=== PATIENT | male | born 1980 | race Caucasian/White ===

== ENCOUNTER 2017-07-29 07:09 | Emergency (ER) | payer MEDICAID ==
--- NOTE | 2017-07-29 07:35 | EDM.PDOC ---
ED HPI GENERAL MEDICAL PROBLEM - General Chief Complaint: Skin Complaint Stated Complaint: reaction ITCHEY Time Seen by Provider: 07/29/17 07:27 Source of Information: Reports: Patient, RN Notes Reviewed History Limitations: Reports: No Limitations - History of Present Illness INITIAL COMMENTS - FREE TEXT/NARRATIVE: 37-year-old gentleman presents emergency department today with a rash encompassing part his chest back upper and lower extremities he's not sure of what he was exposed to did use some Dove body wash approximately one hour prior to presentation denies any shortness of breath or fevers - Related Data Allergies Allergy/AdvReac Type Severity Reaction Status Date / Time No Known Allergies Allergy Verified 09/21/14 12:55 Past Medical History Musculoskeletal History: Reports: Back Pain, Chronic, Fracture Other Musculoskeletal History: left arm and leg 2011. dislocated Left hip 2011 Psychiatric History: Reports: Addiction (Methamphetamine) - Infectious Disease History Infectious Disease History: Reports: Chicken Pox Social & Family History - Tobacco Use Smoking Status *Q: Current Every Day Smoker Years of Tobacco use: 20 Packs/Tins Daily: 1 - Caffeine Use Caffeine Use: Reports: Coffee - Alcohol Use Days Per Week of Alcohol Use: 0 - Recreational Drug Use Recreational Drug Use: Yes Recreational Drug Type: Reports: Methamphetamine Recreational Drug Use Frequency: Socially ED ROS GENERAL - Review of Systems Review Of Systems: See Below Constitutional: Reports: Other (Itching) Respiratory: Reports: No Symptoms Cardiovascular: Reports: No Symptoms Skin: Reports: Pruritis, Rash ED EXAM, SKIN/RASH Exam: See Below Exam Limited By: No Limitations General Appearance: Alert, WD/WN, No Apparent Distress Respiratory/Chest: No Respiratory Distress, Lungs Clear, Normal Breath Sounds, No Accessory Muscle Use Cardiovascular: Regular Rate, Rhythm, No Murmur Skin: Warm, Dry, Rash, Other (Excoriations consists with itch scratch cycle) Course - Vital Signs Last Recorded V/S: Last Vital Signs Temp 97.4 F 07/29/17 07:20 Pulse 95 07/29/17 07:20 Resp 16 07/29/17 07:20 BP 139/91 H 07/29/17 07:20 Pulse Ox 95 07/29/17 07:20 Departure - Departure Time of Disposition: 07:34 Disposition: Home, Self-Care 01 Condition: Good Clinical Impression: Contact dermatitis Qualifiers: Contact dermatitis type: allergic Contact dermatitis trigger: drugs in contact with skin Qualified Code(s): L23.3 - Allergic contact dermatitis due to drugs in contact with skin - Discharge Information Referrals: PCP,None [Primary Care Provider] - Additional Instructions: use Benadryl as needed to control itching symptoms, start the prednisone today please follow-up with your primary care provider in the next 3-5 days if you have no improvement, call return emergency department with worsening of symptoms - Assessment/Plan Plan: Assessment Acuity = acute Site and laterality = allergic reaction Etiology = possible contact exposure Manifestations = itching, rash Location of injury = Home Lab values = none Plan Treatment with Benadryl and short course of prednisone 20 mg once a day for 5 days follow-up with primary care 3-5 days if no improvement Patient was in agreement with the plan all questions were answered, they were instructed to return to the emergency department or call for worsening symptoms. This note was dictated using [employer] voice recognition software please call with any questions.
[2017-07-29 07:42] VITALS: BP 139/91
== END 2017-07-29 07:43 | disposition home or self-care (01) ==
LOC: JP.ED 07:09
DX: L23.3 Allergic contact dermatitis due to drugs in contact with skin (principal); F17.210 Nicotine dependence, cigarettes, uncomplicated
CPT/HCPCS: 99283

== ENCOUNTER 2023-03-25 23:37 | Emergency (ER) | payer MEDICAID, OTHER ==
[2023-03-26 00:45] VITALS: BP 116/59; PULSE 70
== END 2023-03-26 01:43 | disposition home or self-care (01) ==
LOC: JP.ED 23:37
DX: S63.501A Unspecified sprain of right wrist, initial encounter (principal); F17.210 Nicotine dependence, cigarettes, uncomplicated; W16.92XA Jumping or diving into unspecified water causing other injury, initial encounter
CPT/HCPCS: 73110-26-RT; 73110-RT; 99283